=== PATIENT | male | born 1970 | race Caucasian/White ===

== ENCOUNTER 2017-10-31 13:16 | Outpatient (CLI) | payer MEDICAID ==
[2017-10-31 13:13] VITALS: BP 134/69
[~2017-10-31 13:16] MED LIST: FLO0.4C PO; IBUP-1986 PO
== END 2017-10-31 14:20 | disposition home or self-care (01) ==
LOC: ORTHO 13:16
PROVIDERS: ATTEND Nurse Practitioner Family
DX: S59.901A Unspecified injury of right elbow, initial encounter (principal); X58.XXXA Exposure to other specified factors, initial encounter; Y93.89 Activity, other specified; Y92.89 Other specified places as the place of occurrence of the external cause; Y99.8 Other external cause status
CPT/HCPCS: 29105; 99213

== ENCOUNTER 2017-11-16 10:09 | Outpatient (CLI) | payer MEDICAID ==
[2017-11-16 10:10] VITALS: BP 138/72
== END 2017-11-16 10:54 | disposition home or self-care (01) ==
LOC: ORTHO 10:09
PROVIDERS: ATTEND Nurse Practitioner Family
DX: S59.901D Unspecified injury of right elbow, subsequent encounter (principal); X58.XXXD Exposure to other specified factors, subsequent encounter
CPT/HCPCS: 73080; 99213

== ENCOUNTER 2017-12-25 14:00 | Outpatient (CLI) | payer MEDICAID | END 2017-12-25 15:24 | disposition home or self-care (01) | LOC: ORTHO 14:00 | PROVIDERS: ATTEND Nurse Practitioner Family | DX: S59.901D Unspecified injury of right elbow, subsequent encounter (principal); F12.90 Cannabis use, unspecified, uncomplicated; X58.XXXD Exposure to other specified factors, subsequent encounter | CPT/HCPCS: 73080; 99213 ==

== ENCOUNTER 2019-01-20 14:01 | Emergency (ER) | payer MEDICAID ==
[~2019-01-20] VITALS: Ht 170.2 cm; Wt 79.5 kg
[2019-01-20 14:04] VITALS: BP 106/84
[2019-01-20] MEDS ORDERED: DOCU-149 PO (15:12)
== END 2019-01-20 15:31 | disposition home or self-care (01) ==
LOC: ER 14:01
DX: K59.00 Constipation, unspecified (principal); R10.9 Unspecified abdominal pain; F12.90 Cannabis use, unspecified, uncomplicated; Z79.899 Other long term (current) drug therapy
CPT/HCPCS: 99282

== ENCOUNTER 2022-09-29 01:22 | Emergency (ER) | payer MEDICAID ==
[~2022-09-29] VITALS: Ht 170.2 cm; Wt 84.8 kg
[~2022-09-29 01:22] MED LIST changes: +DOCU-149 PO
[2022-09-29 01:42] VITALS: BP 123/76
== END 2022-09-29 03:12 | disposition left against medical advice (07) ==
LOC: ER 01:24
DX: R33.9 Retention of urine, unspecified (principal); Z53.21 Procedure and treatment not carried out due to patient leaving prior to being seen by health care provider
CPT/HCPCS: 99281

== ENCOUNTER 2023-09-26 16:16 | Emergency (ER) | payer MEDICAID ==
[~2023-09-26] VITALS: Ht 167.6 cm; Wt 73.8 kg
[2023-09-26 17:58] VITALS: BP 119/87; PULSE 82; RESP 16; TEMP 98.6; O2SAT 100
[2023-09-26] MEDS ORDERED: LidoCAINE 2% Topical Jelly 11mL syringe TOP ONE (18:45)
[2023-09-26] MEDS ORDERED: tamsulosin 0.4mg capsule PO SCH (19:40)
[2023-09-26] MEDS ORDERED: tamsulosin 0.4mg capsule PO ONE (19:40)
== END 2023-09-26 19:49 | disposition left against medical advice (07) ==
LOC: ER 16:17
DX: R33.9 Retention of urine, unspecified (principal); R30.9 Painful micturition, unspecified; R10.30 Lower abdominal pain, unspecified; F12.10 Cannabis abuse, uncomplicated; Z79.899 Other long term (current) drug therapy
CPT/HCPCS: 99284; A4314; A4358